=== PATIENT | male | born 1950 | race Caucasian/White ===

== ENCOUNTER 2025-07-28 09:17 | Outpatient (CLI) | payer MEDICARE | END 2025-07-28 09:18 | disposition home or self-care (01) | LOC: SCSRAD 09:17 | PROVIDERS: ATTEND Family Medicine | DX: M25.551 Pain in right hip (principal) ==

== ENCOUNTER 2025-09-14 13:33 | Outpatient (CLI) | payer MEDICARE | END 2025-09-14 13:34 | disposition home or self-care (01) | LOC: SCSMRI 13:33 | PROVIDERS: ATTEND Family Medicine | DX: M25.551 Pain in right hip (principal); M24.851 Other specific joint derangements of right hip, not elsewhere classified; S76.311A Strain of muscle, fascia and tendon of the posterior muscle group at thigh level, right thigh, initial encounter; M70.61 Trochanteric bursitis, right hip; S73.191A Other sprain of right hip, initial encounter ==